=== PATIENT | male | born 1995 | race African-American/Black ===

== ENCOUNTER 2022-02-28 15:30 | Emergency (ER) | payer SELFPAY ==
[~2022-02-28] VITALS: Ht 180.3 cm; Wt 99.8 kg
[2022-02-28 17:45] VITALS: BP 138/90
== END 2022-02-28 18:12 | disposition home or self-care (01) ==
LOC: ER 15:30
DX: S60.112A Contusion of left thumb with damage to nail, initial encounter (principal); W22.8XXA Striking against or struck by other objects, initial encounter; Y93.89 Activity, other specified; Y92.89 Other specified places as the place of occurrence of the external cause; Y99.8 Other external cause status
CPT/HCPCS: 11740; 73130

== ENCOUNTER 2023-01-03 10:58 | Inpatient (IN) | payer BC, OTHER ==
[~2023-01-03] VITALS: Ht 180.3 cm; Wt 109.4 kg
[2023-01-03 12:17] LABS: Urine Bacteria NONE SEEN /hpf (None Seen); Urine Blood Negative /uL (Negative); Urine Mucus FEW (None Seen); Urine WBC 2 /hpf (0 - 3)
[2023-01-03 12:22] LABS: Amphetamine Screen, Urine NEGATIVE (NEGATIVE); Barbiturate Scree,Urine NEGATIVE (NEGATIVE); Benzodiazephine Screen, Urine NEGATIVE (NEGATIVE); Cannabinoid Screen, Urine NEGATIVE (NEGATIVE); Cocaine Screen, Urine NEGATIVE (NEGATIVE); Phencyclidine Screen, Urine NEGATIVE (NEGATIVE)
[2023-01-03 12:25] LABS: Basophils # (auto) 0.1 10 ^3/uL (0-0.2); Eosinophils # (auto) 0 10 ^3/uL (0-0.8); Eosinophils % (auto) 0.3 % (0.0-7.0); Hemoglobin 15.4 g/dL (13.5-17.5); Lymphocytes # (auto) 1.1 10 ^3/uL (0.4-5.4); Mean Corpuscular Hemoglobin 28.9 pg (28.0-32.0); Mean Corpuscular Volume 82.6 fL (80.0-100.0); Monocytes % (auto) 11.2 % (0.0-12.0); Neutrophils # (auto) 6.8 10 ^3/uL (1.6-8.6); Neutrophils % (auto) 75.5 % (37.0-80.0); Nucleated Red Blood Cells % 0.1 %; Red Blood Cells 5.33 10^6/uL (4.5-5.90); Red Cell Distribution Width 13.2 % (11.8-14.3); White Blood Cell 9.1 10^3/uL (4.4-10.8)
[2023-01-03 13:00] LABS: Potassium 3.5 mmol/L (3.5-5.1)
[2023-01-03 13:08] LABS: Albumin 4.1 g/dL (3.4-5.0); BUN/Creatinine Ratio 7.3 (10.0-20.0); Bilirubin, Total 0.9 mg/dL (0.2-1.0); Calcium 9.3 mg/dL (8.5-10.1); Total Protein 8.3 g/dL (6.4-8.2)
[2023-01-03 13:26] LABS: Opiate Scree,Urine NEGATIVE (NEGATIVE)
[2023-01-03] MEDS ORDERED: PANTOPRAZOLE 40 MG/10 ML VIAL INJ IV ONE (17:30)
[2023-01-03] MEDS ORDERED: ACETAMINOPHEN 325 MG TAB PO PRN (17:30)
[2023-01-03] MEDS ORDERED: ONDANSETRON HCL 4 MG/2 ML VIAL IV PRN (17:30)
[2023-01-03] MEDS ORDERED: MORPHINE SULFATE INJ 2 MG/ml SYRG IV PRN (17:30)
[2023-01-03] MEDS ORDERED: NITROGLYCERIN 0.4 MG SL TAB SL PRN (17:30)
[2023-01-03] MEDS ORDERED: DOCUSATE SOD 100 MG CAP PO PRN (17:30)
[2023-01-03] MEDS ORDERED: POLYETHYLENE GLYCOL 17 GM PWDR PO ONE (18:30)
[2023-01-03] MEDS: HYDROcodone-ACET 7.5/325MG TAB PO PRN ×2 (18:56→23:32)
[2023-01-03] MEDS: LACTATED RINGER'S 1,000 ML IV SCH (18:56)
[2023-01-03 22:22] LABS: INR 1.16 (0.9-1.15); Partial Thromboplastin Time 33.2 sec (24.6-33.4)
[2023-01-04] VITALS (8 sets, daily range): BP systolic 126–152; BP diastolic 72–94
[2023-01-04] MEDS: HYDROcodone-ACET 7.5/325MG TAB PO PRN ×5 (04:00→21:59)
[2023-01-04] MEDS: LACTATED RINGER'S 1,000 ML IV SCH ×3 (07:05→15:10)
[2023-01-04 08:03] LABS: Basophils # (auto) 0.1 10 ^3/uL (0-0.2); Basophils % (auto) 0.7 % (0.0-2.0); Eosinophils # (auto) 0.1 10 ^3/uL (0-0.8); Eosinophils % (auto) 0.7 % (0.0-7.0); Hematocrit 41.2 % (41.0-53.0); Hemoglobin 14.2 g/dL (13.5-17.5); Lymphocytes # (auto) 1.3 10 ^3/uL (0.4-5.4); Lymphocytes % (auto) 16.3 % (10.0-50.0); Mean Corpuscular Hemoglobin 28.6 pg (28.0-32.0); Mean Corpuscular Hgb Conc. 34.5 g/dL (32.0-36.0); Mean Corpuscular Volume 82.9 fL (80.0-100.0); Monocytes # (auto) 1.2 10 ^3/uL (0-1.3); Monocytes % (auto) 14.6 % (0.0-12.0); Neutrophils # (auto) 5.6 10 ^3/uL (1.6-8.6); Neutrophils % (auto) 67.7 % (37.0-80.0); Nucleated Red Blood Cells % 0.1 %; Red Blood Cells 4.98 10^6/uL (4.5-5.90); Red Cell Distribution Width 13.4 % (11.8-14.3); White Blood Cell 8.2 10^3/uL (4.4-10.8)
[2023-01-04] MEDS: PANTOPRAZOLE 40 MG/10 ML VIAL INJ IV SCH (09:49)
[2023-01-04] MEDS: POLYETHYLENE GLYCOL 17 GM PWDR PO SCH (09:49)
[2023-01-04] MEDS ORDERED: ENOXAPARIN SOD 40 MG/0.4 ML SYRINGE SC SCH (10:00)
[2023-01-04 10:17] LABS: Albumin 3.6 g/dL (3.4-5.0); Potassium 4.2 mmol/L (3.5-5.1)
[2023-01-04 10:23] LABS: BUN/Creatinine Ratio 8.3 (10.0-20.0); Bilirubin, Total 0.9 mg/dL (0.2-1.0)
[2023-01-04] MEDS ORDERED: OMNIPAQUE ORAL SOLN 500ml 12mg/ml PO ONE (15:23)
[2023-01-04] MEDS ORDERED: diphenhdrAMINE HCL 50 MG/1 ML VL IV ONE (15:30)
[2023-01-04] MEDS ORDERED: methylPREDNISolone SOD SUCC 40 MG/ML VL IV ONE (15:30)
[2023-01-04] MEDS ORDERED: FAMOTIDINE (10MG/ML) 2ML VL IV ONE (15:30)
[2023-01-04] MEDS ORDERED: IOHEXOL 300 MG/ML 100ML BOTTLE IJ ONE (17:18)
[2023-01-04] MEDS: ATORVASTATIN 20 MG TAB PO SCH (21:59)
[2023-01-05] MEDS: LACTATED RINGER'S 1,000 ML IV SCH ×3 (02:30→18:43)
[2023-01-05 05:00] VITALS: BP 126/79
[2023-01-05] MEDS: HYDROcodone-ACET 7.5/325MG TAB PO PRN ×3 (07:45→19:30)
[2023-01-05 08:00] VITALS: BP 114/61
[2023-01-05] MEDS: POLYETHYLENE GLYCOL 17 GM PWDR PO SCH (10:00)
[2023-01-05] MEDS: ENOXAPARIN SOD 120 MG/0.8 ML SYRINGE SC SCH ×2 (10:02→22:00)
[2023-01-05] MEDS: PANTOPRAZOLE 40 MG/10 ML VIAL INJ IV SCH (10:02)
[2023-01-05 12:00] VITALS: BP 139/85
[2023-01-05 16:00] VITALS: BP 119/70
[2023-01-05 20:00] VITALS: BP 118/72
[2023-01-05] MEDS: ATORVASTATIN 20 MG TAB PO SCH (22:00)
[2023-01-05 22:36] VITALS: BP 131/81
[2023-01-06] MEDS: LACTATED RINGER'S 1,000 ML IV SCH ×3 (00:30→18:30)
[2023-01-06 05:00] VITALS: BP 133/82
[2023-01-06] MEDS: HYDROcodone-ACET 7.5/325MG TAB PO PRN ×3 (07:51→20:09)
[2023-01-06 09:00] VITALS: BP 156/104
[2023-01-06] MEDS: PANTOPRAZOLE 40 MG/10 ML VIAL INJ IV SCH (10:32)
[2023-01-06] MEDS: ENOXAPARIN SOD 120 MG/0.8 ML SYRINGE SC SCH ×2 (10:32→21:44)
[2023-01-06] MEDS: POLYETHYLENE GLYCOL 17 GM PWDR PO SCH (10:32)
[2023-01-06 13:00] VITALS: BP 166/90
[2023-01-06 17:00] VITALS: BP 175/106
[2023-01-06 17:02] VITALS: BP 162/86
[2023-01-06] MEDS: ATORVASTATIN 20 MG TAB PO SCH (21:44)
[2023-01-06 22:00] VITALS: BP 145/87
[2023-01-07] MEDS: HYDROcodone-ACET 7.5/325MG TAB PO PRN ×5 (00:54→21:05)
[2023-01-07] MEDS: LACTATED RINGER'S 1,000 ML IV SCH ×3 (02:30→18:48)
[2023-01-07 05:00] VITALS: BP 127/80
[2023-01-07 09:00] VITALS: BP 124/81
[2023-01-07] MEDS: PANTOPRAZOLE 40 MG/10 ML VIAL INJ IV SCH (10:12)
[2023-01-07] MEDS: POLYETHYLENE GLYCOL 17 GM PWDR PO SCH (10:12)
[2023-01-07] MEDS: ENOXAPARIN SOD 120 MG/0.8 ML SYRINGE SC SCH ×2 (10:12→21:05)
[2023-01-07 12:42] VITALS: BP 144/85
[2023-01-07 16:49] VITALS: BP 150/86
[2023-01-07] MEDS: ATORVASTATIN 20 MG TAB PO SCH (21:04)
[2023-01-07 22:00] VITALS: BP 141/90
[2023-01-08] MEDS: LACTATED RINGER'S 1,000 ML IV SCH ×2 (02:12→10:02)
[2023-01-08] MEDS: HYDROcodone-ACET 7.5/325MG TAB PO PRN ×4 (02:12→17:21)
[2023-01-08 05:00] VITALS: BP 129/76
[2023-01-08 09:00] VITALS: BP 149/84
[2023-01-08] MEDS ORDERED: IOHEXOL 350 MG/ML 100ML IJ ONE (09:16)
[2023-01-08] MEDS ORDERED: OMNIPAQUE ORAL SOLN 500ml 12mg/ml PO ONE (09:25)
[2023-01-08] MEDS: POLYETHYLENE GLYCOL 17 GM PWDR PO SCH (10:00)
[2023-01-08] MEDS: PANTOPRAZOLE 40 MG/10 ML VIAL INJ IV SCH (10:01)
[2023-01-08] MEDS: ENOXAPARIN SOD 120 MG/0.8 ML SYRINGE SC SCH (10:01)
[2023-01-08 10:36] LABS: Basophils # (auto) 0 10 ^3/uL (0-0.2); Basophils % (auto) 0.3 % (0.0-2.0); Eosinophils # (auto) 0.1 10 ^3/uL (0-0.8); Eosinophils % (auto) 2.7 % (0.0-7.0); Hematocrit 41.6 % (41.0-53.0); Hemoglobin 14.1 g/dL (13.5-17.5); Lymphocytes # (auto) 1.2 10 ^3/uL (0.4-5.4); Lymphocytes % (auto) 32.5 % (10.0-50.0); Mean Corpuscular Hemoglobin 28.2 pg (28.0-32.0); Mean Corpuscular Hgb Conc. 33.9 g/dL (32.0-36.0); Mean Corpuscular Volume 83.3 fL (80.0-100.0); Monocytes # (auto) 0.3 10 ^3/uL (0-1.3); Monocytes % (auto) 8.8 % (0.0-12.0); Neutrophils # (auto) 2.1 10 ^3/uL (1.6-8.6); Neutrophils % (auto) 55.7 % (37.0-80.0); Nucleated Red Blood Cells % 0.1 %; Red Blood Cells 4.99 10^6/uL (4.5-5.90); Red Cell Distribution Width 13.3 % (11.8-14.3); White Blood Cell 3.7 10^3/uL (4.4-10.8)
[2023-01-08 11:11] LABS: Calcium 9.1 mg/dL (8.5-10.1); Potassium 3.6 mmol/L (3.5-5.1)
[2023-01-08 11:17] LABS: Albumin 3.3 g/dL (3.4-5.0); BUN/Creatinine Ratio 5.2 (10.0-20.0); Bilirubin, Total 0.6 mg/dL (0.2-1.0)
[2023-01-08 13:00] VITALS: BP 152/80
[2023-01-08 17:00] VITALS: BP 149/93
== END 2023-01-08 17:37 | disposition left against medical advice (07) | DRG 438 ==
LOC: ER 10:58 → OVERFLOW 18:11 → CENTRAL 01-04 02:30
PROVIDERS: ADMIT Nurse Practitioner Family; ATTEND Family Medicine
DX: K85.90 Acute pancreatitis without necrosis or infection, unspecified (principal); I81 Portal vein thrombosis; E78.5 Hyperlipidemia, unspecified; E66.9 Obesity, unspecified; E86.0 Dehydration; Z20.822 Contact with and (suspected) exposure to COVID-19; Z53.29 Procedure and treatment not carried out because of patient's decision for other reasons; Z68.33 Body mass index [BMI] 33.0-33.9, adult
CPT/HCPCS: 36415; 74176; 74177; 80053; 80061; 80307; 81001; 82150; 82306; 82607; 83690; 85025; 85610; 85730; 87426; 96374; C9113; G0378; J3490